=== PATIENT | female | born 1990 | race Native Hawaiian/Other Pacific Islander ===

== ENCOUNTER 2017-09-12 22:36 | Emergency (ER) | payer OTHER ==
[~2017-09-12] VITALS: Ht 160 cm; Wt 59.0 kg
== END 2017-09-12 23:52 | disposition home or self-care (01) ==
LOC: ED 22:36
DX: L02.414 Cutaneous abscess of left upper limb (principal)
CPT/HCPCS: 96372; 99283; J0696

== ENCOUNTER 2017-12-20 14:52 | Emergency (ER) | payer OTHER ==
[~2017-12-20] VITALS: Ht 160 cm; Wt 59.0 kg
[2017-12-20 15:01] VITALS: BP 114/72; TEMP 98.1
== END 2017-12-20 15:50 | disposition home or self-care (01) ==
LOC: ED 14:52
DX: G43.909 Migraine, unspecified, not intractable, without status migrainosus (principal)
CPT/HCPCS: 96372; 99282; J3030

== ENCOUNTER 2018-08-10 19:58 | Emergency (ER) | payer OTHER ==
[~2018-08-10] VITALS: Ht 160 cm; Wt 63.5 kg
[2018-08-10 21:26] VITALS: BP 121/74; TEMP 98.6
== END 2018-08-10 21:26 | disposition home or self-care (01) ==
LOC: ED 19:58
DX: T78.3XXA Angioneurotic edema, initial encounter (principal)
CPT/HCPCS: 96372; 99282; J0696; J2930

== ENCOUNTER 2020-06-21 08:21 | Emergency (ER) | payer OTHER ==
[~2020-06-21] VITALS: Ht 160 cm; Wt 63.5 kg
[2020-06-21 08:55] LABS: PLATELET COUNT 339 K/uL (152-353)
[2020-06-21 09:02] LABS: SODIUM 140 mmol/L (136-145)
[2020-06-21 09:26] LABS: PARTIAL THROMBOPLASTIN TIME 26.3 SECONDS (24.5-33.6)
[2020-06-21 10:20] VITALS: BP 101/64; TEMP 97.6
== END 2020-06-21 10:20 | disposition short-term general hospital (02) ==
LOC: ED 08:21 → EDBD 08:21 → ED 10:20
PROVIDERS: Family Medicine
PROC: 0T9B70Z Drainage of Bladder with Drainage Device, Via Natural or Artificial Opening (ICD-10-PCS; principal; 2020-06-21)
DX: I63.512 Cerebral infarction due to unspecified occlusion or stenosis of left middle cerebral artery (principal); A41.9 Sepsis, unspecified organism; R47.89 Other speech disturbances; Z03.818 Encounter for observation for suspected exposure to other biological agents ruled out; F17.290 Nicotine dependence, other tobacco product, uncomplicated
CPT/HCPCS: 36415; 51702; 80053; 80307; 81000; 82550; 82948; 83605; 84484; 85027; 85379; 85610; 85730; 87040; 87077; 87186; 87205; 87635; 93005; 96360; 96365; 99285; J0696; U0003

== ENCOUNTER 2020-12-26 19:06 | Emergency (ER) | payer OTHER ==
[~2020-12-26] VITALS: Ht 160 cm; Wt 59.0 kg
[2020-12-26 20:06] LABS: PLATELET COUNT 481 K/uL (152-353)
[2020-12-26 20:14] LABS: POTASSIUM 3.9 mmol/L (3.6-5.2); SODIUM 141 mmol/L (136-145)
[2020-12-26 22:10] VITALS: BP 118/82; TEMP 98
== END 2020-12-26 22:10 ==
LOC: ED 19:06
PROVIDERS: Emergency Medicine
PROC: 0H9DXZZ Drainage of Right Lower Arm Skin, External Approach (ICD-10-PCS; principal; 2020-12-26)
DX: L02.413 Cutaneous abscess of right upper limb (principal); W06.XXXA Fall from bed, initial encounter; Y92.149 Unspecified place in prison as the place of occurrence of the external cause
CPT/HCPCS: 36415; 80048; 83605; 84484; 85027; 87040; 87070; 87077; 87185; 87186; 87205; 93005; 96372; 99283; J0696; J1885

== ENCOUNTER 2020-12-30 09:54 | Emergency (ER) | payer OTHER ==
[~2020-12-30] VITALS: Ht 160 cm; Wt 59.0 kg
[2020-12-30 10:35] LABS: PLATELET COUNT 471 K/uL (152-353)
[2020-12-30 10:47] LABS: POTASSIUM 4.5 mmol/L (3.6-5.2); SODIUM 141 mmol/L (136-145)
[2020-12-30 10:56] LABS: PARTIAL THROMBOPLASTIN TIME 27.1 SECONDS (24.5-33.6)
[2020-12-30 11:29] VITALS: BP 113/78; TEMP 97.8
== END 2020-12-30 11:29 ==
LOC: ED 09:54
PROVIDERS: Emergency Medicine
DX: R07.89 Other chest pain (principal); L02.413 Cutaneous abscess of right upper limb
CPT/HCPCS: 80053; 84484; 85027; 85379; 85610; 85730; 93005; 99283

== ENCOUNTER 2021-11-02 12:57 | Emergency (ER) | payer OTHER ==
[~2021-11-02] VITALS: Ht 160 cm; Wt 90.7 kg
[2021-11-02 13:46] LABS: PLATELET COUNT 187 K/uL (152-353)
[2021-11-02 13:51] LABS: POTASSIUM 3.3 mmol/L (3.6-5.2)
[2021-11-02 15:46] VITALS: BP 116/62; TEMP 98.9
[2021-11-03] MEDS ORDERED: WELLBUTRIN150 MG PO (17:16)
[2021-11-03] MEDS ORDERED: TRILEPTAL150 MG PO (17:17)
[2021-11-03] MEDS ORDERED: TRILEPTAL300 MG PO (17:18)
[2021-11-03] MEDS ORDERED: HYDR25CA25 PO (17:19)
[2021-11-03] MEDS ORDERED: HYDR50CA21 PO (17:20)
[2021-11-03] MEDS ORDERED: ELIQUIS5 MG PO (17:20)
[2021-11-03] MEDS ORDERED: ONDA4TAB3 PO (17:22)
== END 2021-11-02 15:50 | disposition home or self-care (01) ==
LOC: ED 12:57
PROVIDERS: Hospitalist
DX: K52.89 Other specified noninfective gastroenteritis and colitis (principal); R19.7 Diarrhea, unspecified; E86.0 Dehydration; R11.2 Nausea with vomiting, unspecified
CPT/HCPCS: 36415; 80053; 80307; 80320; 81002; 81025; 83690; 84484; 85027; 93005; 96360; 96365; 96375; 99284; J0696; J2405

== ENCOUNTER 2021-11-03 10:39 | Inpatient (IN) | payer OTHER ==
[2021-11-03] VITALS (8 sets, daily range): BP systolic 76–109; BP diastolic 56–70; TEMP 97.4–99.5; Ht 160 cm; Wt 91.7 kg
[~2021-11-03] VITALS: Ht 160 cm; Wt 91.7 kg
[2021-11-03 11:23] LABS: PLATELET COUNT 148 K/uL (152-353)
[2021-11-03 11:26] LABS: POTASSIUM 3.8 mmol/L (3.6-5.2)
[2021-11-03] MEDS ORDERED: WELLBUTRIN150 MG PO (17:16)
[2021-11-03] MEDS ORDERED: TRILEPTAL150 MG PO (17:17)
[2021-11-03] MEDS ORDERED: TRILEPTAL300 MG PO (17:18)
[2021-11-03] MEDS ORDERED: HYDR25CA25 PO (17:19)
[2021-11-03] MEDS ORDERED: ELIQUIS5 MG PO (17:20)
[2021-11-03] MEDS ORDERED: HYDR50CA21 PO (17:20)
[2021-11-03] MEDS ORDERED: ONDA4TAB3 PO (17:22)
[2021-11-04] VITALS (8 sets, daily range): BP systolic 105–113; BP diastolic 62–71; TEMP 98.8–101.2
[2021-11-04 05:28] LABS: PLATELET COUNT 105 K/uL (152-353)
[2021-11-04 06:14] LABS: POTASSIUM 3.8 mmol/L (3.6-5.2)
[2021-11-05] VITALS (8 sets, daily range): BP systolic 104–132; BP diastolic 57–72; TEMP 98.5–102.7
[2021-11-05 04:58] LABS: POTASSIUM 3.4 mmol/L (3.6-5.2)
[2021-11-05 05:08] LABS: PLATELET COUNT 77 K/uL (152-353)
[2021-11-06] VITALS: BP 116/71; TEMP 98.6
[2021-11-06 04:00] VITALS: BP 98/86; TEMP 98.5
[2021-11-06 08:00] VITALS: BP 106/61; TEMP 98.4
[2021-11-06 12:00] VITALS: BP 95/44; TEMP 97.7
[2021-11-06 13:20] LABS: PLATELET COUNT 46 K/uL (152-353)
[2021-11-06 13:43] LABS: POTASSIUM 3.7 mmol/L (3.6-5.2)
[2021-11-06 16:00] VITALS: BP 96/64; TEMP 97.6
== END 2021-11-06 19:36 | disposition short-term general hospital (02) | DRG 872 ==
LOC: ED 10:39 → MED/SURG 14:00
PROVIDERS: Internal Medicine; ADMIT Emergency Medicine Emergency Medical Services; ATTEND Internal Medicine
DX: A41.02 Sepsis due to Methicillin resistant Staphylococcus aureus (principal); I69.351 Hemiplegia and hemiparesis following cerebral infarction affecting right dominant side; I36.0 Nonrheumatic tricuspid (valve) stenosis; E87.6 Hypokalemia; E83.42 Hypomagnesemia; I95.89 Other hypotension; E86.1 Hypovolemia; I49.8 Other specified cardiac arrhythmias; I50.9 Heart failure, unspecified; Z95.0 Presence of cardiac pacemaker; K52.89 Other specified noninfective gastroenteritis and colitis; Z86.711 Personal history of pulmonary embolism; Z79.01 Long term (current) use of anticoagulants; E86.0 Dehydration
CPT/HCPCS: 36415; 80053; 80307; 80320; 81002; 81015; 82150; 83605; 83630; 83690; 83735; 83880; 84484; 85007; 85027; 85610; 87015; 87040; 87045; 87077; 87185; 87186; 87205; 87324; 87449; 87502; 87635; 87899; 93005; 96360; 96361; 96365; 96374; 96375; 96376; 99284; J1885; J2405; J2543; J2550; J3370; J3490; Q0177; U0003

== ENCOUNTER 2021-12-11 13:08 | Inpatient (IN) | payer BC ==
[~2021-12-11] VITALS: Ht 160 cm; Wt 80.8 kg
[~2021-12-11 13:08] MED LIST: ELIQUIS5 MG PO; HYDR25CA25 PO; HYDR50CA21 PO; ONDA4TAB3 PO; TRILEPTAL150 MG PO; TRILEPTAL300 MG PO; WELLBUTRIN150 MG PO
[2021-12-11 13:14] VITALS: BP 115/77; TEMP 97.9; Ht 160 cm; Wt 80.8 kg
[2021-12-11] MEDS ORDERED: BUPROPION HYDR300 MG PO (15:21)
[2021-12-11] MEDS ORDERED: ASCORBIC ACD1000 MG PO (15:21)
[2021-12-11] MEDS ORDERED: [UNRECOGNIZED DRUG - CODE] IV (15:23)
[2021-12-11] MEDS ORDERED: VITAMIN D-31000 UNIT PO (15:24)
[2021-12-11] MEDS ORDERED: FURO40TA93 PO (15:24)
[2021-12-11] MEDS ORDERED: GABA100C2 PO (15:25)
[2021-12-11] MEDS ORDERED: MUCINEX600 MG PO (15:26)
[2021-12-11] MEDS ORDERED: METO25TA4 PO (15:27)
[2021-12-11] MEDS ORDERED: MIDODRINE10 MG PO (15:27)
[2021-12-11] MEDS ORDERED: PERCOCET1 TA3 PO (15:28)
[2021-12-11] MEDS ORDERED: PANTOPRAZOLE 40MG TA PO (15:29)
[2021-12-11] MEDS ORDERED: KLOR-CON M2020 MEQ PO (15:30)
[2021-12-11] MEDS ORDERED: ROSU10TA PO (15:31)
[2021-12-11] MEDS ORDERED: PROMETHAZINE HY25 MG PO (15:31)
[2021-12-11] MEDS ORDERED: VANCOMYCIN IVPB (15:32)
[2021-12-11] MEDS ORDERED: SENNOSIDES (SE8.6 MG PO (15:32)
[2021-12-11 16:00] VITALS: BP 113/75; TEMP 97.9
[2021-12-11 20:00] VITALS: BP 91/59; TEMP 97.7
[2021-12-11 22:30] VITALS: BP 111/76
[2021-12-12 00:07] VITALS: BP 109/66; TEMP 98.7
[2021-12-12 04:03] VITALS: BP 114/82; TEMP 99
[2021-12-12 08:00] VITALS: BP 94/61; TEMP 99
[2021-12-12 12:00] VITALS: BP 128/82; TEMP 97.3
[2021-12-12 16:00] VITALS: BP 95/56; TEMP 98.6
[2021-12-12 20:00] VITALS: BP 115/66; TEMP 97.4
[2021-12-13] VITALS: BP 95/65; TEMP 97.6
[2021-12-13 03:59] VITALS: BP 118/78; TEMP 98.8
[2021-12-13 08:00] VITALS: BP 127/79; TEMP 97.6
[2021-12-13 08:31] LABS: PLATELET COUNT 554 K/uL (152-353)
[2021-12-13 08:36] LABS: POTASSIUM 3.9 mmol/L (3.6-5.2)
[2021-12-13 12:00] VITALS: BP 123/71; TEMP 97.8
[2021-12-13 16:00] VITALS: BP 118/85; TEMP 98.2
[2021-12-13 20:00] VITALS: BP 113/70; TEMP 97.5
[2021-12-14] VITALS: BP 119/86; TEMP 97.8
[2021-12-14 04:00] VITALS: BP 111/71; TEMP 96.9
[2021-12-14 04:54] LABS: PLATELET COUNT 509 K/uL (152-353)
[2021-12-14 08:00] VITALS: BP 118/77; TEMP 98.3
[2021-12-14 12:16] VITALS: BP 104/73; TEMP 98
[2021-12-14 16:05] VITALS: BP 110/75; TEMP 97.8
[2021-12-14 20:00] VITALS: BP 105/62; TEMP 98.8
[2021-12-15] VITALS: BP 102/60; TEMP 98.7
[2021-12-15 04:00] VITALS: BP 106/64; TEMP 98.1
[2021-12-15 08:00] VITALS: BP 106/63; TEMP 98.7
[2021-12-15 12:09] VITALS: BP 99/72; TEMP 97.7
[2021-12-15 15:55] VITALS: TEMP 97.5
[2021-12-15 20:00] VITALS: BP 115/77; TEMP 97.6
[2021-12-16] VITALS: BP 102/70; TEMP 98.6
[2021-12-16 04:00] VITALS: BP 103/66; TEMP 98.5
[2021-12-16 08:05] VITALS: BP 96/65; TEMP 97.9
[2021-12-16 12:00] VITALS: BP 103/62; TEMP 97.6
[2021-12-16 16:00] VITALS: BP 115/65; TEMP 97.7
[2021-12-16 20:00] VITALS: BP 110/65; TEMP 98.5
[2021-12-17] VITALS: BP 101/61; BP 105/73; TEMP 98.1; TEMP 98.3
[2021-12-17 04:00] VITALS: BP 115/75; TEMP 97.6
[2021-12-17 05:22] LABS: PLATELET COUNT 428 K/uL (152-353)
[2021-12-17 05:43] LABS: POTASSIUM 2.8 mmol/L (3.6-5.2)
[2021-12-17 08:00] VITALS: BP 113/78; TEMP 98.4
[2021-12-17 12:00] VITALS: BP 106/74; TEMP 98.3
[2021-12-17 16:00] VITALS: BP 98/68; TEMP 98.6
[2021-12-17 20:00] VITALS: BP 99/60; TEMP 97.6
[2021-12-18] VITALS (7 sets, daily range): BP systolic 99–123; BP diastolic 56–74; TEMP 97.8–98.3
[2021-12-19] VITALS: BP 101/64; TEMP 98.1
[2021-12-19 04:00] VITALS: BP 99/59; TEMP 97.4
[2021-12-19 05:25] LABS: POTASSIUM 3.1 mmol/L (3.6-5.2)
[2021-12-19 08:00] VITALS: BP 104/71; TEMP 97.8
[2021-12-19 12:00] VITALS: BP 116/73; TEMP 97.9
[2021-12-19 15:42] VITALS: BP 108/76; TEMP 97.7
[2021-12-19 20:00] VITALS: BP 102/63; TEMP 98.4
[2021-12-20] VITALS: BP 125/68; TEMP 98.2
[2021-12-20 03:53] VITALS: BP 102/64; TEMP 97.3
[2021-12-20 07:53] VITALS: BP 109/72; TEMP 98.6
[2021-12-20 11:41] VITALS: BP 110/71; TEMP 99.1
[2021-12-20 16:00] VITALS: BP 109/75; TEMP 98.4
[2021-12-20 20:00] VITALS: BP 107/69; TEMP 97.8
[2021-12-21 00:02] VITALS: BP 109/67; TEMP 98
[2021-12-21 04:00] VITALS: BP 96/61; TEMP 97.9
[2021-12-21 05:52] LABS: POTASSIUM 3.3 mmol/L (3.6-5.2)
[2021-12-21 08:00] VITALS: BP 98/60; TEMP 98.7
[2021-12-21 12:00] VITALS: BP 99/62; TEMP 98.4
[2021-12-21 16:00] VITALS: BP 106/71; TEMP 98
[2021-12-21 20:00] VITALS: BP 113/75; TEMP 97.7
[2021-12-22] VITALS: BP 107/71; TEMP 97.9
[2021-12-22 04:00] VITALS: BP 112/78; TEMP 97.4
[2021-12-22 08:00] VITALS: BP 90/41; TEMP 98.7
[2021-12-22 12:15] VITALS: BP 99/68; TEMP 98.4
[2021-12-22 15:58] VITALS: BP 104/74; TEMP 98.4
[2021-12-22 20:00] VITALS: BP 99/67; TEMP 96.6
[2021-12-23] VITALS: BP 112/84; TEMP 97.9
[2021-12-23 04:00] VITALS: BP 103/55; TEMP 97.9
[2021-12-23 06:02] LABS: POTASSIUM 3.3 mmol/L (3.6-5.2)
[2021-12-23 08:00] VITALS: BP 103/73; TEMP 98.8
[2021-12-23 12:00] VITALS: BP 111/67; TEMP 98.3
[2021-12-23 16:01] VITALS: BP 94/64; TEMP 98.3
[2021-12-23 20:00] VITALS: BP 98/62; TEMP 98.2
[2021-12-24] VITALS: BP 111/73; TEMP 98.7
[2021-12-24 04:00] VITALS: BP 114/80; TEMP 98.3
[2021-12-24 08:00] VITALS: BP 109/68; TEMP 98.3
[2021-12-24 12:00] VITALS: BP 118/79; TEMP 98.8
[2021-12-24 16:00] VITALS: BP 97/63; TEMP 98.4
[2021-12-24 20:00] VITALS: BP 104/59; TEMP 97.8
[2021-12-25 04:00] VITALS: BP 101/71; TEMP 97.8
[2021-12-25 08:00] VITALS: BP 104/61; TEMP 97.9
[2021-12-25 12:00] VITALS: BP 119/79; TEMP 97.9
[2021-12-25 16:00] VITALS: BP 99/69; TEMP 98.2
[2021-12-25 20:00] VITALS: BP 104/75; TEMP 98.8
[2021-12-26] VITALS: BP 113/76; TEMP 98.3
[2021-12-26 04:00] VITALS: BP 105/72; TEMP 97.6
[2021-12-26 08:10] VITALS: BP 106/73; TEMP 97.9
[2021-12-26 11:53] VITALS: BP 108/67; TEMP 97.7
[2021-12-26 16:26] VITALS: BP 97/70; TEMP 98.3
[2021-12-26 20:00] VITALS: BP 97/64; TEMP 97.3
[2021-12-27] VITALS: BP 93/63; TEMP 97.7
[2021-12-27 04:00] VITALS: BP 100/59; TEMP 97.4
[2021-12-27 08:00] VITALS: BP 104/70; TEMP 97.8
[2021-12-27 12:00] VITALS: BP 102/74; TEMP 97.6
[2021-12-27 16:00] VITALS: BP 108/71; TEMP 97.6
[2021-12-27 20:00] VITALS: BP 103/62; TEMP 97.4
[2021-12-28] VITALS: BP 84/73; TEMP 98.3
[2021-12-28 04:00] VITALS: BP 97/71; TEMP 98.4
[2021-12-28 07:53] VITALS: BP 101/65; TEMP 98.4
[2021-12-28 12:00] VITALS: BP 106/71; TEMP 98.2
[2021-12-28 16:00] VITALS: BP 105/67; TEMP 98.5
[2021-12-28 23:58] VITALS: BP 100/65; TEMP 98.4
[2021-12-29 04:00] VITALS: BP 107/71; TEMP 97.8
[2021-12-29 08:00] VITALS: BP 100/64; TEMP 98.2
[2021-12-29 12:00] VITALS: BP 106/67; TEMP 99
[2021-12-29 16:00] VITALS: BP 100/59; TEMP 98.1
[2021-12-29 20:00] VITALS: BP 107/73; TEMP 97.3
[2021-12-30] VITALS: BP 114/77; TEMP 98
[2021-12-30 04:00] VITALS: BP 94/62; TEMP 98.6
[2021-12-30 08:00] VITALS: BP 93/64; TEMP 98.3
[2021-12-30 12:00] VITALS: BP 112/78; TEMP 98.2
[2021-12-30 12:41] LABS: PLATELET COUNT 445 K/uL (152-353)
[2021-12-30 15:39] LABS: PLATELET COUNT 380 K/uL (152-353)
[2021-12-30 15:53] LABS: POTASSIUM 3.4 mmol/L (3.6-5.2)
[2021-12-30 16:00] VITALS: BP 102/71; TEMP 97.9
[2021-12-30 20:00] VITALS: BP 99/63; TEMP 98.5
[2021-12-31] VITALS: BP 118/67; TEMP 97.5
[2021-12-31 04:00] VITALS: BP 101/76; TEMP 97.9
[2021-12-31 08:00] VITALS: BP 108/73; TEMP 98.4
[2021-12-31 12:05] VITALS: BP 108/70; TEMP 98
[2021-12-31 20:00] VITALS: BP 99/56; TEMP 98.7
[2022-01-01] VITALS: BP 100/61; TEMP 97.7
[2022-01-01 04:00] VITALS: BP 94/64; TEMP 98
[2022-01-01 08:00] VITALS: BP 98/56; TEMP 98.3
[2022-01-01 16:00] VITALS: BP 111/79; TEMP 98.1
[2022-01-01 20:00] VITALS: BP 100/59; TEMP 98.4
[2022-01-02] VITALS: BP 101/60; TEMP 98
[2022-01-02 04:00] VITALS: BP 135/77; TEMP 97.9
[2022-01-02 08:00] VITALS: BP 91/64; TEMP 98.4
[2022-01-02 12:00] VITALS: BP 108/59; TEMP 98.2
[2022-01-02 12:17] LABS: PLATELET COUNT 330 K/uL (152-353)
[2022-01-02 12:19] LABS: POTASSIUM 3.9 mmol/L (3.6-5.2)
[2022-01-02 16:00] VITALS: BP 110/69; TEMP 97.8
[2022-01-02 20:00] VITALS: BP 96/65; TEMP 97.7
[2022-01-03] VITALS: BP 104/75; BP 78/31; TEMP 97.3; TEMP 98.4
[2022-01-03 04:40] LABS: PLATELET COUNT 312 K/uL (152-353)
[2022-01-03 04:48] LABS: POTASSIUM 3.7 mmol/L (3.6-5.2)
[2022-01-03 08:00] VITALS: BP 103/73; TEMP 98
[2022-01-03 12:00] VITALS: BP 107/70; TEMP 98
[2022-01-03 16:00] VITALS: BP 107/75; TEMP 97.7
[2022-01-03 20:20] VITALS: BP 104/73; TEMP 98
[2022-01-04] VITALS: BP 102/75; TEMP 98.9
[2022-01-04 05:03] LABS: PLATELET COUNT 315 K/uL (152-353)
[2022-01-04 05:26] LABS: POTASSIUM 3.6 mmol/L (3.6-5.2)
[2022-01-04 08:00] VITALS: BP 101/68; TEMP 97.4
[2022-01-04 12:00] VITALS: BP 96/60; TEMP 98.8
[2022-01-04 16:00] VITALS: BP 150/84; BP 91/70; TEMP 98
[2022-01-04 19:30] VITALS: BP 108/82; TEMP 97.7
[2022-01-05 04:00] VITALS: BP 105/70; TEMP 97.6
[2022-01-05 05:33] LABS: PLATELET COUNT 364 K/uL (152-353)
[2022-01-05 08:00] VITALS: BP 106/71; TEMP 98.5
[2022-01-05 12:00] VITALS: BP 99/70; TEMP 97.5
[2022-01-05 16:00] VITALS: BP 99/70; TEMP 97.4
[2022-01-05 20:00] VITALS: BP 98/67; TEMP 98.2
[2022-01-06] VITALS: BP 105/79; TEMP 98.8
[2022-01-06 04:00] VITALS: BP 118/85; TEMP 98.1
[2022-01-06 05:44] LABS: PLATELET COUNT 335 K/uL (152-353)
[2022-01-06 07:12] LABS: POTASSIUM 3.5 mmol/L (3.6-5.2)
[2022-01-06 16:00] VITALS: BP 106/73; TEMP 97.9
[2022-01-06 20:00] VITALS: BP 99/67; TEMP 97.4
[2022-01-07] VITALS: BP 104/65; TEMP 97.6
[2022-01-07 04:00] VITALS: BP 96/59; TEMP 98.4
[2022-01-07 05:34] LABS: PLATELET COUNT 305 K/uL (152-353)
[2022-01-07 05:35] LABS: POTASSIUM 3.6 mmol/L (3.6-5.2)
[2022-01-07 08:00] VITALS: BP 96/54; TEMP 97.7
== END 2022-01-07 10:26 | disposition home or self-care (01) | DRG 288 ==
LOC: MED/SURG 13:08
PROVIDERS: Internal Medicine; ADMIT Internal Medicine; ATTEND Internal Medicine
DX: I33.0 Acute and subacute infective endocarditis (principal); I26.90 Septic pulmonary embolism without acute cor pulmonale; I69.351 Hemiplegia and hemiparesis following cerebral infarction affecting right dominant side; B95.62 Methicillin resistant Staphylococcus aureus infection as the cause of diseases classified elsewhere; Z95.0 Presence of cardiac pacemaker; I95.89 Other hypotension; I50.9 Heart failure, unspecified; B19.20 Unspecified viral hepatitis C without hepatic coma; E66.8 Other obesity; Z68.37 Body mass index [BMI] 37.0-37.9, adult; K76.0 Fatty (change of) liver, not elsewhere classified; Z95.4 Presence of other heart-valve replacement; F19.10 Other psychoactive substance abuse, uncomplicated; A59.01 Trichomonal vulvovaginitis; E87.6 Hypokalemia; E83.42 Hypomagnesemia; R11.2 Nausea with vomiting, unspecified; K21.9 Gastro-esophageal reflux disease without esophagitis; F41.8 Other specified anxiety disorders; B37.3 Candidiasis of vulva and vagina
CPT/HCPCS: 36415; 36591; 80048; 80053; 80202; 81002; 81015; 83735; 85027; 87088; 87490; 87590; 87635; 94760; J0712; J1642; J2405; J3370; J3475; U0003

== ENCOUNTER 2022-01-16 08:16 | Emergency (ER) | payer BC ==
[~2022-01-16] VITALS: Ht 160 cm; Wt 80.7 kg
[~2022-01-16 08:16] MED LIST changes: +ASCORBIC ACD1000 MG PO; +BUPROPION HYDR300 MG PO; +FURO40TA93 PO; +GABA100C2 PO; +KLOR-CON M2020 MEQ PO; +METO25TA4 PO; +MIDODRINE10 MG PO; +MUCINEX600 MG PO; +PANTOPRAZOLE 40MG TA PO; +PERCOCET1 TA3 PO; +PROMETHAZINE HY25 MG PO; +ROSU10TA PO; +SENNOSIDES (SE8.6 MG PO; +VANCOMYCIN IVPB; +VITAMIN D-31000 UNIT PO; +[UNRECOGNIZED DRUG - CODE] IV
[2022-01-16 08:18] VITALS: TEMP 97
[2022-01-16 09:28] LABS: PLATELET COUNT 432 K/uL (152-353)
[2022-01-16 09:34] LABS: POTASSIUM 3.3 mmol/L (3.6-5.2)
[2022-01-16 09:40] LABS: PARTIAL THROMBOPLASTIN TIME 27.1 SECONDS (24.5-33.6)
[2022-01-16 13:09] VITALS: BP 114/72
== END 2022-01-16 13:09 | disposition short-term general hospital (02) ==
LOC: ED 08:16
PROVIDERS: Emergency Medicine
DX: I26.99 Other pulmonary embolism without acute cor pulmonale (principal); Z95.2 Presence of prosthetic heart valve; Z11.52 Encounter for screening for COVID-19
CPT/HCPCS: 36415; 36600; 80053; 81002; 81025; 82805; 83690; 84484; 85027; 85379; 85610; 85730; 87040; 87101; 87502; 87635; 93005; 96372; 99284; 99285; J1650; Q9963; U0003